=== PATIENT | male | born 1990 | race African-American/Black ===

== ENCOUNTER → 2021-01-27 | Outpatient (CLI) | payer OTHER ==
--- NOTE | 2021-01-27 15:28 | REP ---
INDICATION: SCROTAL PAIN. COMPARISON: None. TECHNIQUE: Real-time sonographic evaluation of scrotum and contents performed. FINDINGS: Testicles are normal in size and echotexture, right testicle measuring 3.8 x 2.0 x 2.3 cm and left testicle 3.5 x 1.7 x 2.8 cm. There is no testicular mass or torsion. Blood flow is seen in each testicle with duplex Doppler evaluation. The left epididymis appears enlarged and heterogeneous with increased blood flow with Doppler evaluation. Findings suggest left-sided epididymitis. IMPRESSION: Findings compatible with left-sided epididymitis. No testicular mass or torsion. <Electronically signed by Rusty Hays > 01/27/21 [id number]
== END ==
LOC: M RAD 13:51
PROVIDERS: ATTEND Physician Assistant
DX: N50.82 Scrotal pain (principal)

== ENCOUNTER → 2021-03-21 | Outpatient (CLI) | payer SELFPAY | LOC: M LABSMTC 10:43 | PROVIDERS: ATTEND Pediatrics | DX: Z20.822 Contact with and (suspected) exposure to COVID-19 (principal) ==

== ENCOUNTER → 2021-05-21 | Outpatient (CLI) | payer SELFPAY | LOC: M LABSMTC 09:38 | PROVIDERS: ATTEND Pediatrics | DX: Z20.828 Contact with and (suspected) exposure to other viral communicable diseases (principal); Z11.59 Encounter for screening for other viral diseases ==